=== PATIENT | male | born 1985 | race Caucasian/White ===

== ENCOUNTER 2018-06-02 16:24 | Emergency (ER) | payer OTHER ==
--- NOTE | 2018-06-02 17:45 | ED Physician Documentation ---
PD HPI LOWER EXT INJURY - Stated complaint Stated Complaint: LT FOOT INJ - Chief complaint Chief Complaint: Ext Problem - History obtained from History obtained from: Patient PD PAST MEDICAL HISTORY - Past Medical History Past Medical History: No - Past Surgical History Past Surgical History: Yes - Present Medications Home Medications: Ambulatory Orders Medication Instructions Recorded Confirmed No Known Home Medications 06/02/18 06/02/18 - Allergies Allergies/Adverse Reactions: Allergies Allergy/AdvReac Type Severity Reaction Status Date / Time No Known Drug Allergies Allergy Verified 06/02/18 16:34 - Social History Does the pt smoke?: Yes Smoking Status: Current every day smoker Does the pt drink ETOH?: Yes Does the pt have substance abuse?: No Results - Vitals Vitals: Vital Signs - 24 hr 06/02/18 16:26 Temperature 36.7 C Heart Rate 84 Blood Pressure 145/84 H O2 Saturation 98 Oxygen O2 Source Room air PD MEDICAL DECISION MAKING - Sepsis Event Vital Signs: Vital Signs - 24 hr 06/02/18 16:26 Temperature 36.7 C Heart Rate 84 Blood Pressure 145/84 H O2 Saturation 98 Oxygen O2 Source Room air
[2018-06-02] MEDS ORDERED: ACETAMINOPHEN 325 MG TABLET PO STA (18:02)
[2018-06-02] MEDS ORDERED: IBUPROFEN 400 MG TABLET PO STA (18:02)
--- NOTE | 2018-06-02 19:16 | ED Physician Documentation ---
History of Present Illness - Stated complaint Stated Complaint: LT FOOT INJ - Chief complaint Chief Complaint: Ext Problem - Additonal information Additional information: hx from pt AD [place] twisted foot playing basketball pain to mid foot ankle OK Review of Systems Musculoskeletal: reports: Pain with weight bearing PD PAST MEDICAL HISTORY - Past Medical History Past Medical History: No - Past Surgical History Past Surgical History: Yes - Present Medications Home Medications: Ambulatory Orders Medication Instructions Recorded Confirmed No Known Home Medications 06/02/18 06/02/18 - Allergies Allergies/Adverse Reactions: Allergies Allergy/AdvReac Type Severity Reaction Status Date / Time No Known Drug Allergies Allergy Verified 06/02/18 16:34 - Social History Does the pt smoke?: Yes Smoking Status: Current every day smoker Does the pt drink ETOH?: Yes Does the pt have substance abuse?: No PD ED PE NORMAL - Vitals Vital signs reviewed: Yes - Extremities Extremities: Other (L foot no deformity, TTP mid foot, pain with ROM mid foot, distal foot and toes and ankle NT, + pedal pulse and cap refill, MS intact) Results - Vitals Vitals: Vital Signs - 24 hr 06/02/18 16:26 Temperature 36.7 C Heart Rate 84 Blood Pressure 145/84 H O2 Saturation 98 Oxygen O2 Source Room air - Rads (name of study) foot Radiology: See rad report (comminuted intra-articualr fx prox phalane great toe, no midfoot fx) PD MEDICAL DECISION MAKING - Sepsis Event Vital Signs: Vital Signs - 24 hr 06/02/18 16:26 Temperature 36.7 C Heart Rate 84 Blood Pressure 145/84 H O2 Saturation 98 Oxygen O2 Source Room air Departure - Departure Disposition: 01 Home, Self Care Clinical Impression: Foot injury Qualifiers: Encounter type: initial encounter Laterality: left Qualified Code(s): S99.922A - Unspecified injury of left foot, initial encounter Toe fracture Qualifiers: Encounter type: initial encounter Toe: great toe Fracture type: closed Phalanx: unspecified phalanx Fracture alignment: nondisplaced Laterality: left Qualified Code(s): S92.405A - Nondisplaced unspecified fracture of left great toe, initial encounter for closed fracture Condition: Good Instructions: ED Fx Foot Follow-Up: ROMAN Perez [Provider Group] Comments: You have a toe fracture But you also have significant midfoot pain I do not see any midfoot fractures on the xray But I am concerned you may have a midfoot dislocation called a lisfranc injury You should not walk on the foot Wear the splint and use the crutches Ice for 20 minutes at a time Audra for the pain Follow up with [facility] for further evaluation and perhaps a MRI or CT of the foot to assess for ligament injuries Forms: Activity restrictions
--- NOTE | 2018-06-02 19:30 | XRAY Report ---
Reason: Trauma Procedure Date: 06/02/2018 Accession Number: [id number] / [id number] Procedure: XR - Foot 3 View LT CPT Code: FULL RESULT: EXAM: LEFT FOOT RADIOGRAPHY EXAM DATE: 06/02/2018 04:51 PM. CLINICAL HISTORY: Trauma. Injured playing basketball. COMPARISON: None. TECHNIQUE: 3 views. FINDINGS: Bones: Comminuted mildly displaced shaft fractures of the first proximal phalanx with intra-articular extension distally. No other bony abnormality. Joints: Normal. No subluxations. Soft Tissues: Unremarkable. IMPRESSION: Comminuted mildly displaced fractures of the shaft of the first proximal phalanx with intra-articular extension distally. RADIA
[2018-06-02 20:05] VITALS: BP 122/72
== END 2018-06-02 20:15 | disposition home or self-care (01) ==
LOC: ED 16:24
DX: S99.922A Unspecified injury of left foot, initial encounter (principal); S92.405A Nondisplaced unspecified fracture of left great toe, initial encounter for closed fracture; X50.1XXA Overexertion from prolonged static or awkward postures, initial encounter; Y93.67 Activity, basketball; F17.200 Nicotine dependence, unspecified, uncomplicated
CPT/HCPCS: 73630; 99282; 99283; A9270

== ENCOUNTER 2018-08-14 07:06 | Emergency (ER) | payer OTHER ==
[2018-08-14] MEDS ORDERED: DEXAMETHASONE 10 MG/ML VIAL PO STA (07:25)
--- NOTE | 2018-08-14 07:28 | ED Physician Documentation ---
PD HPI LOWER EXT INJURY - Stated complaint Stated Complaint: KNEE PX - Chief complaint Chief Complaint: Trauma Ext - History obtained from History obtained from: Patient - History of Present Illness PD HPI LOW EXT INJURY LOCATION: Right, Knee Type of injury: Twist Where injury occurred: Home Timing - onset: Yesterday Timing - duration: Days (1) Timing - details: Abrupt onset, Still present Improved by: Rest, Immobilization Worsened by: Moving, Palpating Associated symptoms: No: Weakness, Numbness, Tingling, Swelling Contributing factors: No: Anticoagulated Similar symptoms before: Diagnosis (cartilage injury) Recently seen: Not recently seen - Additional information Additional information: 33-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 It is locked up in slight flexion and is unable to fully extend it. He has had this happen to him the number of times previously but usually this has resolved within 1-2 hours. He is not able to walk on his foot normally he has to walk on it on his toes on the right side. Review of Systems Constitutional: denies: Fever Eyes: denies: Decreased vision Ears: denies: Ear pain Nose: denies: Congestion Throat: denies: Sore throat Respiratory: denies: Cough GI: denies: Vomiting Skin: denies: Rash Musculoskeletal: reports: Extremity pain, Joint pain, Pain with weight bearing. denies: Neck pain, Back pain Neurologic: denies: Generalized weakness, Focal weakness, Numbness PD PAST MEDICAL HISTORY - Past Surgical History Past Surgical History: Yes - Present Medications Home Medications: Ambulatory Orders Medication Instructions Recorded Confirmed Hydrocodone/Acetaminophen 1 - 2 each PO Q6H PRN #14 tablet 08/14/18 [Hydrocodon-Acetaminophen 5-325] Ibuprofen 08/14/18 Varenicline Tartrate [Chantix] 08/14/18 - Allergies Allergies/Adverse Reactions: Allergies Allergy/AdvReac Type Severity Reaction Status Date / Time No Known Drug Allergies Allergy Verified 08/14/18 07:26 - Social History Does the pt smoke?: Yes Smoking Status: Current every day smoker Does the pt drink ETOH?: Yes Does the pt have substance abuse?: No PD ED PE NORMAL - Vitals Vital signs reviewed: Yes (hypertensive ) - General General: Alert and oriented X 3, No acute distress, Well developed/nourished - HEENT HEENT: Atraumatic, PERRL, EOMI - Respiratory Respiratory: No respiratory distress - Derm Derm: Normal color, Warm and dry, No rash - Extremities Extremities: No deformity, No edema, Other (medial joint line pain. The knee is held in slight flexio and the patient prefers a sligh varus force on the knee. The ligaments are stable the knee flexes well but does not extend. 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 No acute osseous abnormality. 2. Postsurgical changes, advanced degenerative change, and joint effusion.), EMP read indepedently, See rad report PD MEDICAL DECISION MAKING - ED course Complexity details: reviewed old records, reviewed results, re-evaluated patient, considered differential, d/w patient ED course: 33 y/o male with a locking knee on the right has had injury to the right knee previously including ACL and meniscus injury last operated on in 2005. He presents today with locked knee and I am not able to initially extend the knee with traction and rotation. After medication with decadron and time a second attempt fails and the orthopod Dr. Tejeda is consulted in the case and recommends conservative treatment with an articulating knee brace, crutches, analgesia and time. He recommends 3 day follow up and not urgent surgery. Departure - Departure Disposition: 01 Home, Self Care Clinical Impression: Locking of right knee Condition: Stable Instructions: ED Meniscal Injury Knee Poss Follow-Up: MALIA BELL MD [Primary Care Provider] - Tiffanie Tejeda MD [Provider Admit Priv/Credential] - Prescriptions: Hydrocodone/Acetaminophen [Hydrocodon-Acetaminophen 5-325] 1 - 2 each PO Q6H PRN #14 tablet PRN Reason: pain Forms: Activity restrictions
[2018-08-14] MEDS ORDERED: CHERRY SYRUP 10 ML UDC PO ONE (07:37)
--- NOTE | 2018-08-14 07:53 | XRAY Report ---
Reason: locked in flexion Procedure Date: 08/14/2018 Accession Number: [id number] / [id number] Procedure: XR - Knee 4 View RT CPT Code: FULL RESULT: EXAM: RIGHT KNEE RADIOGRAPHY EXAM DATE: 08/14/2018 07:39 AM. CLINICAL HISTORY: Locked in flexion. COMPARISON: MRI RIGHT KNEE 06/04/2006 11:00 AM. TECHNIQUE: 4 views. FINDINGS: Bones: No acute fracture. Postsurgical changes from ACL reconstruction. Joints: No dislocation. Mild to moderate degenerative change, greater than expected for age. 35 degrees flexion on the lateral view. Moderate suprapatellar effusion. Soft Tissues: No focal abnormality. IMPRESSION: 1. No acute osseous abnormality. 2. Postsurgical changes, advanced degenerative change, and joint effusion. RADIA
[2018-08-14 11:23] VITALS: BP 138/84
== END 2018-08-14 11:44 | disposition home or self-care (01) ==
LOC: ED 07:06
DX: M23.91 Unspecified internal derangement of right knee (principal)
CPT/HCPCS: 73564; 99283; 99284; A9270

== ENCOUNTER 2018-09-04 08:46 | Day surgery (SDC) | payer OTHER ==
--- NOTE | 2018-09-04 08:51 | ANESTHESIA ---
Pre-Anesthesia VS, & Labs - Diagnosis R knee meniscus tear - Procedure R knee arthroscopy, meniscus debridement Vital Signs: Last Vital Signs Temp 36.8 C 09/04/18 08:57 Pulse 84 09/04/18 08:57 Resp 18 09/04/18 08:57 BP 124/85 H 09/04/18 08:57 Pulse Ox 97 09/04/18 08:57 Height 6 ft 2 in Weight (kg) 81.65 kg Body Mass Index 23.1 Height 6 ft 2 in Weight (kg) 81.65 kg Body Mass Index 23.1 - NPO >8 hours Home Medications and Allergies Home Medications: Ambulatory Orders Ibuprofen [Motrin] 800 mg PO Q8H PRN 09/02/18 Varenicline Tartrate [Chantix] 1 mg PO BID 09/02/18 Ibuprofen [Motrin] 800 mg PO Q8H PRN 09/02/18 Varenicline Tartrate [Chantix] 1 mg PO BID 09/02/18 Allergies/Adverse Reactions: Allergies Allergy/AdvReac Type Severity Reaction Status Date / Time No Known Drug Allergies Allergy Verified 09/02/18 14:32 Anes History & Medical History - Anesthetic History Anesthesia Complications: reports: No previous complications Family history of Anesthesia Complications: Denies Family history of Malignant Hyperthermia: Denies - Medical History Cardiovascular: reports: None Pulmonary: reports: None Gastrointestinal: reports: None Urinary: reports: None Musculoskeletal: reports: Other Endocrine/Autoimmune: reports: None Skin: reports: None Smoking Status: Current every day smoker - Surgical History Orthopedic: ACL reconstruction, Arthroscopic surgery, Other Exam General: Alert, Oriented x3, Cooperative, No acute distress Dental: WNL Mouth Opening: Greater than 4 Fingerbreadths Neck Mobility: Normal Mallampati classification: I Thyromental Distance: greater than 6 cm Respiratory: Lungs clear, Normal breath sounds Cardiovascular: Regular rate Neurological: Normal speech Mental/Cognitive Status: Alert/Oriented X3 Plan Anesthesia Type: General Consent for Procedure(s) Verified and Reviewed: Yes Code Status: Attempt Resuscitation ASA classification: 2-Mild systemic disease Is this case an emergency?: No
[2018-09-04] MEDS ORDERED: ceFAZolin 2 GM/50 ML 2 GM/50 ML BAG IV ONE (09:11)
[2018-09-04] MEDS ORDERED: LACTATED RINGERS 1,000 ML IV ONE (09:11)
[2018-09-04] MEDS ORDERED: BUPIVACAINE 0.25% PF 30 ML VIAL ONE ×2 (10:27→10:44)
[2018-09-04] MEDS ORDERED: EPINEPHrine 1 MG/ML AMP ONE (10:50)
[2018-09-04] MEDS ORDERED: BUPIVACAINE 0.25% PF 30 ML VIAL SUBQ ONE ×2 (11:53)
[2018-09-04] MEDS ORDERED: DEXAMETHASONE 4 MG/ML VIAL IVP ONE (12:00)
[2018-09-04] MEDS ORDERED: fentaNYL 100 MCG/2 ML VIAL IVP ONE (12:00)
[2018-09-04] MEDS ORDERED: MIDAZOLAM 2 MG/2 ML VIAL IVP ONE (12:00)
[2018-09-04] MEDS ORDERED: ONDANSETRON 4 MG/2 ML VIAL IVP ONE (12:00)
[2018-09-04] MEDS ORDERED: PROPOFOL 200 MG/20 ML VIAL IVP ONE (12:00)
[2018-09-04] MEDS ORDERED: LIDOCAINE-MPF 2% 5 ML VIAL IM ONE (12:00)
[2018-09-04] MEDS ORDERED: KETOROLAC 30 MG/ML VIAL IVP ONE (12:00)
[2018-09-04] MEDS ORDERED: ONDANSETRON 4 MG/2 ML VIAL IVP PRN (12:33)
[2018-09-04] MEDS ORDERED: oxyCODONE 5 MG TABLET PO PRN (12:33)
--- NOTE | 2018-09-04 12:37 | OPERATIVE REPORT ---
Operative Report - General Procedure Date: 09/04/18 Planned Procedure: Right knee arthrsocopy with meniscus debridement & chondroplasty Pre-Op Diagnosis: Right knee cartilage lesion, meniscus tears, possible loose body Procedure Performed: Right knee scope debridement large loose body removal trochlear chondroplasty medial meniscus debridement lateral meniscus debridement Post Op Diagnosis: Right knee osteoarthritis with tricompartmental involvement. Right knee lo - Procedure Note Primary Surgeon: Tip Estimated Blood Loss (mL): 5 Complications: None - Other Other Information/Narrative: Indication For Surgery: 33-year-old male who has a complicated history with his right knee. He has had 5 knee surgeries to include microfracture and ACL reconstructions with the last surgery being 2005. He has chronic pain but has been managing it. On 13 August he sustained an injury to his knee and then at the inability to straighten it or bend it with a large effusion. He was indicated for surgery because of his limited range of motion with the plan of debriding any structures that may be blocking motion. The risks, benefits, and alternatives were discussed. Risks include pain, bleeding, infection, damage to nearby structures and cartilage, lack of symptom relief, need for further surgery, DVT, PE, stroke, and . Written consent was obtained. Examination Under Anesthesia: ROM equal to the contralateral side. Stable dial at 30 & 90 degrees. Stable to varus and valgus stressing at 0 & 30 degrees. 1 a Topher. Normal Pivot shift. Positive mechanical sensation when straightening the knee Diagnostic Arthroscopy: 2 cm x 2 cm x 1 cm bony loose body adjacent to the anterior horn of the medial meniscus. Synovium injected and pro-proliferative. Patella cartilage grade 2 3 changes to large portions. Trochlear cartilage grade 4 lesion centrally and large. Medial femoral condyle cartilage large grade 4 lesions with some grade 3 into 3 sections. Medial tibial plateau cartilage large grade 4 with some grade 2 and 3. Medial meniscus diminutive with small tear on the leading edge this was debrided. ACL graft showed portions were still intact but some sections were loose, I was unable to pull the graft off of the lateral wall. PCL was intact. Lateral femoral condyle cartilage largely intact with grade 1 changes throughout. Lateral tibial plateau cartilage focal grade 3 lesion the posterior aspect but otherwise grade 1 softening. Lateral meniscus diminutive with a small tear in the free edge which was debrided. Procedure in Detail: The patient was met in the pre-operative hold area on the day of the procedure. The operative extremity was signed and questions were answered. The patient was brought to the operating room and a general anesthetic was administered. Supine position was used and bony prominences were padded. An examination under anesthesia was performed. Standard prepping and draping was performed. A time out confirmed patient identification, laterality, procedure, allergies, antibiotics, and images. An Esmarch was used to exsanguinate the limb and the tourniquet was elevated to 250 mmHg. Total tourniquet time was 33 minutes. A standard diagnostic arthroscopy of the knee was performed through anterolateral and anteromedial portal sites. The anteromedial portal was created under direct visualization after localizing with a spinal needle. The findings can be found above. I then proceeded to use a large biter shaver and grasper to remove the free body. I then debrided the anterior fat pad and proliferative synovium with a shaver for better visualization and for therapeutic benefit. I then used the shaver to debride the tear of the medial meniscus and also the small tear of the lateral meniscus. I made the decision to not touch the ACL graft as portions were intact. I then used a shaver and biters to debride the edges of the trochlear cartilage lesion back to a stable base. Final images were taken and all arthroscopic fluid and instruments were removed from the knee. The incisions were closed with buried monocryl sutures. Steri strips were applied. 10 cc of 0.25% Marcaine without epinephrine was injected near the portal sites. A sterile dressing and compression stocking was placed. The patient was awakened and transferred to recovery in stable condition.
[2018-09-04 13:16] VITALS: BP 128/69
== END 2018-09-04 08:47 | disposition home or self-care (01) ==
LOC: SDS 08:46
PROVIDERS: ATTEND Orthopaedic Surgery
PROC: 0SBC4ZZ Excision of Right Knee Joint, Percutaneous Endoscopic Approach (ICD-10-PCS; 2018-09-04)
PROC: 0SBC4ZZ Excision of Right Knee Joint, Percutaneous Endoscopic Approach (ICD-10-PCS; principal; 2018-09-04 10:00)
DX: S83.241A Other tear of medial meniscus, current injury, right knee, initial encounter (principal); S83.281A Other tear of lateral meniscus, current injury, right knee, initial encounter; M23.41 Loose body in knee, right knee; M17.11 Unilateral primary osteoarthritis, right knee; F17.210 Nicotine dependence, cigarettes, uncomplicated
CPT/HCPCS: 29880; J0690; J7120

== ENCOUNTER → 2022-05-26 | Outpatient (CLI) | payer OTHER | END | disposition short-term general hospital (02) | LOC: EMS 09:58 | DX: R10.12 Left upper quadrant pain (principal) | CPT/HCPCS: A0425; A0427 ==